=== PATIENT | male | born 1985 | race African-American/Black ===

== ENCOUNTER 2021-09-10 00:03 | Emergency (ER) | payer MEDICAID ==
[~2021-09-10] VITALS: Ht 172.7 cm; Wt 103.7 kg
[2021-09-10] MEDS ORDERED: IBUPROFEN 600MG TABLET PO ONE (02:15)
[2021-09-10 04:50] VITALS: BP 149/65
== END 2021-09-10 05:52 | disposition home or self-care (01) ==
LOC: ER 00:19
DX: R51.9 Headache, unspecified (principal); R10.9 Unspecified abdominal pain; R07.89 Other chest pain; Z98.2 Presence of cerebrospinal fluid drainage device
CPT/HCPCS: 71045; 74018; 99284

== ENCOUNTER 2024-09-17 23:14 | Emergency (ER) | payer MEDICAID ==
[~2024-09-17] VITALS: Ht 180.3 cm; Wt 100.0 kg
[2024-09-17 23:19] VITALS: O2SAT 98
[2024-09-17 23:30] VITALS: TEMP 36.7
[2024-09-17] MEDS: MORPHINE SULFATE 4 MG/ML INJ (FOR IV/IM USE) IV STA (23:38)
[2024-09-18] MEDS: ASPIRIN 325MG EC TABLET PO ONE (00:28)
[2024-09-18] MEDS: NITROGLYCERIN 0.4MG TABLET SL SL PRN (00:28)
[2024-09-18 00:48] LABS: BASOPHILS % 0.7 % (0.0-2.0); EOSINOPHILS % 0.6 % (0.0-5.0); HEMOGLOBIN. 13.7 g/dL (14.0-18.0); LYMPHOCYTES % 36.3 % (20.0-50.0); MEAN CORPUSCULAR HEMOGLOBIN 27.4 pg (28.0-32.0); MEAN CORPUSCULAR HGB CONC 32.7 g/dL (31.0-37.0); MEAN CORPUSCULAR VOLUME 83.7 fL (80.0-94.0); MEAN PLATELET VOLUME 6.9 fl (7.4-10.4); MONOCYTES % 5.6 % (2.0-8.0); NEUTROPHILS % 56.8 % (40.0-76.0); PLATELET 284 x1000/uL (130-400); RED BLOOD CELL COUNT 5.01 mill/uL (4.7-6.1); RED CELL DISTRIBUTION WIDTH 13.2 % (11.6-14.6); WHITE BLOOD COUNT 3.9 x1000/uL (4.5-11.0)
[2024-09-18 00:57] LABS: CARBON DIOXIDE 24 mEq/L (21-32); CHLORIDE 107 mEq/L (98-107); SODIUM 139 mEq/L (136-145)
[2024-09-18 00:58] LABS: CALCIUM 9.6 mg/dL (8.7-10.4)
[2024-09-18 01:03] LABS: CREATININE 1.2 mg/dL (0.6-1.3); ETHANOL BLOOD 23 mg/dL (<10); GLUCOSE 117 mg/dL (70-105); UREA NITROGEN BLOOD 15 mg/dL (9-23)
[2024-09-18 01:04] LABS: TROPONIN I HIGH SENSITIVITY 14 ng/L (3.0-53)
[2024-09-18 01:30] VITALS: O2SAT 99
[2024-09-18 02:11] VITALS: TEMP 98
[2024-09-18] MEDS: HYDROMORPHONE HCL/PF 2MG/ML INJ IV ONE (02:32)
[2024-09-18 02:38] VITALS: BP 163/102; PULSE 86; RESP 12
[2024-09-18] MEDS: ACETAMINOPHEN 1000MG/100ML 100 ML IV ONE (02:57)
[2024-09-18 04:39] LABS: TROPONIN I HIGH SENSITIVITY 16 ng/L (3.0-53)
== END 2024-09-18 04:05 | disposition left against medical advice (07) ==
LOC: ER 23:14 → EDBEDREQTM 09-18 01:10 → EDBEDREQDT 09-18 01:10 → EDBEDREQ 09-18 01:10 → ENRESERV 09-18 01:44 → ER 09-18 04:05 → CANBEDREQ 09-18 04:05
DX: R07.89 Other chest pain (principal); I10 Essential (primary) hypertension; G40.909 Epilepsy, unspecified, not intractable, without status epilepticus; Z79.01 Long term (current) use of anticoagulants; Z90.49 Acquired absence of other specified parts of digestive tract; Z86.718 Personal history of other venous thrombosis and embolism; Z98.890 Other specified postprocedural states; Z88.5 Allergy status to narcotic agent; Z88.8 Allergy status to other drugs, medicaments and biological substances
CPT/HCPCS: 36415 ×2; 71045; 93005; 99285; 80048; 80320; 83880; 85025; 85379; 84484; 70450; 96365; 96375; J1171; G0480; J0131